=== PATIENT | female | born 1975 | race Caucasian/White ===

== ENCOUNTER 2020-04-06 16:49 | Observation (INO) ==
[~2020-04-06 16:49] MED LIST: RINGER'S SOLUTION,LACTATED 1,000 ML IV PRN
[2020-04-06] MEDS ORDERED: DEXTROSE 5%-NORMAL SALINE 1,000 ML IV PRN (17:01)
--- NOTE | 2020-04-06 17:04 | HP ---
Chief Complaint - Chief Complaint Date of Service: 04/06/20 Time of Service: 17:03 Chief Complaint: vomiting History of Present Illness: She began having nausea and vomiting on 03/31/2020. She reports more belching and a taste in her mouth but not so much heartburn. She denies difficulty swallowing. She denies abdominal discomfort. Typically she will be able to eat but then be nauseated and vomit. She has been moving her bowels and passing gas. Although her stools are a little more loose, they are not watery. She has not traveled. No one else in the family has been sick. She has not had any bagged lettuce products. She was in the [facility] on 627 for IV fluids and IV antiemetics. She was a little better, however the problem persisted and she came in again to the [facility] today for IV fluids. She has had some headaches but they are not associated with any vertigo or focal neurologic symptoms. Her only previous abdominal surgery was for a vaginal hysterectomy. Medical History (Last Reviewed 04/06/20 @ 17:09 by Raya Raymond MD) Hypothyroidism (Chronic) Hypovitaminosis D (Chronic) Onset Date: 04/27/16 Vitamin B12 deficiency (Chronic) Onset Date: 06/18/15 Depression (Chronic) Onset Date: Unknown Hypothyroidism Onset Date: 06/2014 Adenomyosis Onset Date: 12/11/13 History of endometrial biopsy Onset Date: 12/29/13 Negative for hyperplasia/carcinoma. History of hysteroscopy Onset Date: 03/2010 History of hysteroscopy Onset Date: 01/07/14 Hypertension during Onset Date: ~2010 Menorrhagia Onset Date: 05/21/13 Pre-eclampsia Onset Date: ~01/2007 Right hip pain Onset Date: Unknown Uterine polyp Onset Date: Unknown Vulvitis Onset Date: 05/05/16 Abnormal Papanicolaou smear of cervix Onset Date: ~2004 Frequent UTI Onset Date: Unknown HPV (human papilloma virus) infection Onset Date: Unknown Headache Onset Date: Unknown Surgical History: Surgical History (Last Reviewed 04/06/20 @ 17:09 by Raya Raymond MD) History of back surgery Onset Date: ~2002 History of bilateral salpingectomy Onset Date: 07/08/14 History of section Onset Date: 2010 Repeat . History of section Onset Date: 2006 Breech presentation, pre-eclampsia. History of colposcopy Onset Date: ~2004 History of cystoscopy Onset Date: 07/08/14 History of dilation and curettage Onset Date: ~1997 History of dilation and curettage Onset Date: 03/2010 History of loop electrical excision procedure (LEEP) Onset Date: ~1997 History of total vaginal hysterectomy (TVH) Onset Date: 07/08/14 Cervix - mild chronic cervicitis. Endometrium - benign secretory endometrium. Myometrium - nodular adenomyosis. Family History: Family History (Last Reviewed 04/06/20 @ 17:09 by Raya Raymond MD) Father Diabetes Hypertension Pancreas transplanted Kidney transplant recipient Mother , age 59 Lung cancer, Onset Age: 59 Hypertension Hyperlipemia Diabetes Grandfather CHF (congestive heart failure) Prostate cancer Social History: (Last Reviewed 04/06/20 @ 17:09 by Raya Raymond MD) Social History: adopted: No residential: No Marital status: household members: family number of children: 2 current occupational status: employed current occupation: PRINTED CIRCUIT BOARD PREASSEMBLER - [employer] current occupational exposures/hazards: No Highest education level completed: Associate degree: occupat Sexually Active: Yes Service: No Tobacco: Smoking Status: Never smoker Alcohol: alcohol intake: current alcohol intake frequency: holiday/special occasion Substance Use: substance use type: does not use Dietary Habits: caffeine: Yes Type: carbonated beverages, coffee Pets: pets and animals: dog(s) Jahaira/Taoist: special jahaira needs: No Review Of Systems (GEN) - Review of Systems Generalized/Overall Review: Present: Malaise. Absent: Chills, Fever EENTM: Absent: Blurred Vision Respiratory: Present: Other - No sleep apnea. Absent: Cough, Shortness of Breath Cardiac: Present: Edema - Sometimes at the end of the day but resolves overnight. Absent: Chest Pain, Palpitations Abdominal: Present: Nausea, Vomiting, Other - Looser stools, but not watery. No blood or mucus. Absent: Hematemesis, Abdominal Pain Genitourinary: Present: Nocturia - Generally gets up twice or 3 times (chronic). Absent: Burning, Urgency, Frequency Musculoskeletal: Absent: No Symptoms Reported Neurological: Present: Headache - No associated focal neurologic symptoms, Other - She does not sleep well (chronic) Skin: Present: No Symptoms Reported Endocrine: Present: No Symptoms Reported Immunizations: Up to date through employment Allergies/Adverse Reactions: Allergies Allergy/AdvReac Type Severity Reaction Status Date / Time acetaminophen [From Vicodin] AdvReac Severe Nausea Verified 09/23/19 16:00 hydrocodone bitartrate AdvReac Severe Nausea Verified 09/23/19 16:00 [From Vicodin] oxycodone HCl [From Percocet] AdvReac Severe Nausea Verified 09/23/19 16:00 Home Medications: HOME MEDICATIONS cholecalciferol (vitamin D3) 125 mcg (5,000 unit) tablet 125 mcg PO DAILY #0.1 tab 02/22/20 [Last Taken Unknown] bupropion HCl 300 mg 24 hr tablet, extended release 300 mg PO QAM #30 tab 03/05/20 [Last Taken Unknown] alprazolam 1 mg tablet 1 mg PO TID PRN #90 tab 03/27/20 [Last Taken Unknown] escitalopram oxalate 20 mg tablet 20 mg PO DAILY #30 tab 03/27/20 [Last Taken Unknown] levothyroxine 100 mcg capsule 100 mcg PO DAILY #30 cap 03/27/20 [Last Taken Unknown] ondansetron 8 mg disintegrating tablet 8 mg PO Q8H PRN #15 tab 04/03/20 [Last Taken Unknown] Exam - Exam Constitutional: Present: Alert, Oriented x3, Cooperative, Mild distress ENT Exam: Present: normal ENT inspection Neck: Present: full range of motion, normal inspection Breasts: Present: Exam deferred Respiratory: Present: normal breath sounds, no respiratory distress Cardiovascular/Chest: Present: regular rate, rhythm - Distant heart sounds no skipped or extra beats over 1 full minute, no murmur, other - Thready pulse Abdomen: Present: obese, other - She denies any abdominal pain or tenderness /Rectal: Present: Exam deferred Extremity: Present: normal range of motion, normal inspection Skin Exam: Present: normal color - Sun exposure, other Neurologic: Present: 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 Random blood glucose of 154 Ultrasound of the abdomen shows cholelithiasis with no evidence of acute cholecystitis and no tenderness on exam. There was a lot of bowel gas. Assessment/Plan - Assessment/Plan (1) Vomiting Assessment: Her nausea and vomiting have been refractory to outpatient management with medication and IV fluids. Discussed what was involved with EGD and biopsy. The risks and possible compli cations were explained. A pamphlet on EGD and GERD was given to her to review. After an interactive discussion her questions were answered to her apparent satisfaction and she has given informed consent for EGD. The procedure will be performed tonight. A flat and upright abdominal x-ray has been ordered as well. Case was discussed with Dr. Ashford. COVID-19 testing will be done and the case will be handled according to the result. Problem: Acute Qualifiers: Vomiting type: unspecified Vomiting Intractability: intractable Nausea presence: with nausea Qualified Code(s): R11.2 - Nausea with vomiting, unspecified
[2020-04-06] MEDS ORDERED: PROCHLORPERAZINE 25 MG SUPP.RECT RC PRN (17:15)
[2020-04-06] MEDS ORDERED: ACETAMINOPHEN 650 MG SUPP.RECT RC PRN (17:15)
[2020-04-06] MEDS ORDERED: ONDANSETRON HCL/PF 2 MG/ML VIAL IV PRN (17:18)
--- NOTE | 2020-04-06 17:31 | HP ---
Chief Complaint - Chief Complaint Date of Service: 04/06/20 Time of Service: 13:00 Chief Complaint: Intractable nausea and vomiting History of Present Illness: She began having nausea and vomiting on 03/31/2020. She reports more belching and a taste in her mouth but not so much heartburn. She denies difficulty swallowing. She denies abdominal discomfort. Typically she will be able to eat but then be nauseated and vomit. She has been moving her bowels and passing gas. Although her stools are a little more loose, they are not watery. She has not traveled. No one else in the family has been sick. She has not had any bagged lettuce products. She was in the [facility] on 627 for IV fluids and IV antiemetics. She was a little better, however the problem persisted and she came in again to the [facility] today for IV fluids. She has had some headaches but they are not associated with any vertigo or focal neurologic symptoms. Her only previous abdominal surgery was for a vaginal hysterectomy. Medical History (Last Reviewed 04/06/20 @ 17:09 by Raya Raymond MD) Hypothyroidism (Chronic) Hypovitaminosis D (Chronic) Onset Date: 04/27/16 Vitamin B12 deficiency (Chronic) Onset Date: 06/18/15 Depression (Chronic) Onset Date: Unknown Hypothyroidism Onset Date: 06/2014 Adenomyosis Onset Date: 12/11/13 History of endometrial biopsy Onset Date: 12/29/13 Negative for hyperplasia/carcinoma. History of hysteroscopy Onset Date: 03/2010 History of hysteroscopy Onset Date: 01/07/14 Hypertension during Onset Date: ~2010 Menorrhagia Onset Date: 05/21/13 Pre-eclampsia Onset Date: ~01/2007 Right hip pain Onset Date: Unknown Uterine polyp Onset Date: Unknown Vulvitis Onset Date: 05/05/16 Abnormal Papanicolaou smear of cervix Onset Date: ~2004 Frequent UTI Onset Date: Unknown HPV (human papilloma virus) infection Onset Date: Unknown Headache Onset Date: Unknown Surgical History: Surgical History (Last Reviewed 04/06/20 @ 17:09 by Raya Raymond MD) History of back surgery Onset Date: ~2002 History of bilateral salpingectomy Onset Date: 07/08/14 History of section Onset Date: 2010 Repeat . History of section Onset Date: 2007 Breech presentation, pre-eclampsia. History of colposcopy Onset Date: ~2004 History of cystoscopy Onset Date: 07/08/14 History of dilation and curettage Onset Date: ~1997 History of dilation and curettage Onset Date: 03/2010 History of loop electrical excision procedure (LEEP) Onset Date: ~1997 History of total vaginal hysterectomy (TVH) Onset Date: 07/08/14 Cervix - mild chronic cervicitis. Endometrium - benign secretory endometrium. Myometrium - nodular adenomyosis. Family History: Family History (Last Reviewed 04/06/20 @ 17:09 by Raya Raymond MD) Father Diabetes Hypertension Pancreas transplanted Kidney transplant recipient Mother , age 59 Lung cancer, Onset Age: 59 Hypertension Hyperlipemia Diabetes Grandfather CHF (congestive heart failure) Prostate cancer Social History: (Last Reviewed 04/06/20 @ 17:09 by Raya Raymond MD) Social History: adopted: No senior care: No Marital status: household members: family number of children: 2 current occupational status: employed current occupation: TECHNOLOGY EDUCATION INSTRUCTOR - [employer] current occupational exposures/hazards: No Highest education level completed: Associate degree: occupat Sexually Active: Yes Service: No Tobacco: Smoking Status: Never smoker Alcohol: alcohol intake: current alcohol intake frequency: holiday/special occasion Substance Use: substance use type: does not use Dietary Habits: caffeine: Yes Type: carbonated beverages, coffee Pets: pets and animals: dog(s) Jahaira/Lutheran: special jahaira needs: No Review Of Systems (GEN) - Review of Systems Generalized/Overall Review: Present: Weakness, Malaise, Fatigue, Weight loss. Absent: Chills, Fever, Diaphoresis EENTM: Present: No Symptoms Reported Respiratory: Present: No Symptoms Reported Cardiac: Present: No Symptoms Reported Abdominal: Present: Nausea, Vomiting. Absent: Hematemesis, Abdominal Pain, Diarrhea, Melena, Bright blood from rectum Genitourinary: Present: No Symptoms Reported Musculoskeletal: Present: No Symptoms Reported Neurological: Present: Headache, Weakness Skin: Present: No Symptoms Reported Endocrine: Present: No Symptoms Reported Allergies/Adverse Reactions: Allergies Allergy/AdvReac Type Severity Reaction Status Date / Time acetaminophen [From Vicodin] AdvReac Severe Nausea Verified 09/23/19 16:00 hydrocodone bitartrate AdvReac Severe Nausea Verified 09/23/19 16:00 [From Vicodin] oxycodone HCl [From Percocet] AdvReac Severe Nausea Verified 09/23/19 16:00 Home Medications: HOME MEDICATIONS cholecalciferol (vitamin D3) 125 mcg (5,000 unit) tablet 125 mcg PO DAILY #0.1 tab 02/22/20 [Last Taken Unknown] bupropion HCl 300 mg 24 hr tablet, extended release 300 mg PO QAM #30 tab 03/05/20 [Last Taken Unknown] alprazolam 1 mg tablet 1 mg PO TID PRN #90 tab 03/27/20 [Last Taken Unknown] escitalopram oxalate 20 mg tablet 20 mg PO DAILY #30 tab 03/27/20 [Last Taken Unknown] levothyroxine 100 mcg capsule 100 mcg PO DAILY #30 cap 03/27/20 [Last Taken Unknown] ondansetron 8 mg disintegrating tablet 8 mg PO Q8H PRN #15 tab 04/03/20 [Last Taken Unknown] Exam - Exam Constitutional: Present: Alert, Oriented x3, Cooperative, Well developed, Well nourished, Obese ENT Exam: Present: normal ENT inspection, hearing grossly normal, pharynx normal, TMs normal Eye Exam: bilateral eye: normal inspection, PERRL, EOMI Neck: Present: non-tender, full range of motion, supple, normal inspection Back Exam: Present: normal inspection, no CVA tenderness, no vertebral tenderness Breasts: Present: Exam deferred Respiratory: Present: chest non-tender, lungs clear, normal breath sounds, no respiratory distress, no accessory muscle use Cardiovascular/Chest: Present: normal peripheral pulses, tachycardia Peripheral Pulses: carotid (R): 2+, carotid (L): 2+, radial (R): 2+, radial (L): 2+ Abdomen: Present: Normal bowel sounds, soft, nontender, nondistended /Rectal: Present: Exam deferred Extremity: Present: normal range of motion, non-tender, normal inspection, no pedal edema, no calf tenderness, normal capillary refill Skin Exam: Present: normal color, warm/dry, no cyanosis 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 I also gave her Protonix 40 mg IV. She is also had Compazine 25 mg IM. She has had an ultrasound of the abdomen that was nonrevealing as a cause for her intractable nausea and vomiting. 2 view abdomen has been ordered but not yet completed. I have consulted Dr. Morton. He believes she deserves to have an EGD done right away especially while she is n.p.o. spinning supervisor notified me that because she had an outpatient failure over the weekend and still was not feeling great after today's outpatient treatment that the best course would be to admit for observation through the night, continue rehydration and attempt at emesis control, and then get the EGD done. I have placed a consultation in for Dr. Morton. He has already seen her and made recommendations. I will continue with IV fluids tonight. She will have both ondansetron IV and if that is not working then Compazine rectal suppositories are ordered. - Assessment/Plan (1) Intractable nausea and vomiting Problem: Acute (2) Weakness Problem: Acute (3) Dehydration Problem: Acute
[2020-04-06 17:44] LABS: Anion Gap 13.2 mmol/L (6.8-13.8); BUN/Creatinine Ratio 13.2 (9.0-21.6); Blood Urea Nitrogen 12 mg/dL (3-23); Calcium * 8.8 mg/dL (7.9-10.9); Carbon Dioxide 24.9 mmol/L (24-32.6); Chloride 104 mmol/L (97-106); Glucose * 70 mg/dL (70-110); Potassium 3.1 mmol/L (3.4-4.6); Sodium 139 mmol/L (132-142)
[2020-04-06] MEDS ORDERED: NEOSTIGMINE METHYLSULFATE 1 MG/ML VIAL ONE (18:13)
[2020-04-06] MEDS ORDERED: LIDOCAINE HCL 20 ML VIAL ONE (18:13)
[2020-04-06] MEDS ORDERED: ONDANSETRON HCL/PF 2 MG/ML VIAL ONE (18:13)
[2020-04-06] MEDS ORDERED: fentaNYL CITRATE/PF 50 MCG/ML AMPUL ONE (18:13)
[2020-04-06] MEDS ORDERED: GLYCOPYRROLATE 0.2 MG/ML VIAL ONE (18:13)
[2020-04-06] MEDS ORDERED: PROPOFOL VIAL IV ONE (18:13)
[2020-04-06] MEDS ORDERED: SUCCINYLCHOLINE CHLORIDE 20 MG/ML VIAL ONE (18:14)
[2020-04-06] MEDS ORDERED: ROCURONIUM BROMIDE 10 MG/ML VIAL ONE (18:14)
--- NOTE | 2020-04-06 18:42 | ANES ---
Anesthesia Pre Procedure Eval Vitals/Labs: Last Vital Signs Temp 36.3 C 04/06/20 18:04 Pulse 65 04/06/20 18:04 Resp 16 04/06/20 18:04 BP 109/56 04/06/20 18:04 Pulse Ox 96 04/06/20 18:04 HOME MEDICATIONS cholecalciferol (vitamin D3) 125 mcg (5,000 unit) tablet 125 mcg PO DAILY #0.1 tab 02/22/20 [Last Taken Unknown] bupropion HCl 300 mg 24 hr tablet, extended release 300 mg PO QAM #30 tab 03/05/20 [Last Taken Unknown] alprazolam 1 mg tablet 1 mg PO TID PRN #90 tab 03/27/20 [Last Taken Unknown] escitalopram oxalate 20 mg tablet 20 mg PO DAILY #30 tab 03/27/20 [Last Taken Unknown] levothyroxine 100 mcg capsule 100 mcg PO DAILY #30 cap 03/27/20 [Last Taken Unknown] ondansetron 8 mg disintegrating tablet 8 mg PO Q8H PRN #15 tab 04/03/20 [Last Taken Unknown] Allergies/Adverse Reactions: Allergies Allergy/AdvReac Type Severity Reaction Status Date / Time acetaminophen [From Vicodin] AdvReac Severe Nausea Verified 04/06/20 18:01 hydrocodone bitartrate AdvReac Severe Nausea Verified 04/06/20 18:01 [From Vicodin] oxycodone HCl [From Percocet] AdvReac Severe Nausea Verified 04/06/20 18:01 - Planned Procedure Planned Procedure: nausea vomiting failed outpatient treatment Medication List Reviewed:: Yes Allergies Verified: Yes Medical History (Last Reviewed 04/06/20 @ 18:41 by Jung Benavidez CRNA) Hypothyroidism (Chronic) Hypovitaminosis D (Chronic) Onset Date: 04/27/16 Vitamin B12 deficiency (Chronic) Onset Date: 06/18/15 Depression (Chronic) Onset Date: Unknown Hypothyroidism Onset Date: 06/2014 Adenomyosis Onset Date: 12/11/13 History of endometrial biopsy Onset Date: 12/29/13 Negative for hyperplasia/carcinoma. History of hysteroscopy Onset Date: 03/2010 History of hysteroscopy Onset Date: 01/07/14 Hypertension during Onset Date: ~2010 Menorrhagia Onset Date: 05/21/13 Pre-eclampsia Onset Date: ~01/2007 Right hip pain Onset Date: Unknown Uterine polyp Onset Date: Unknown Vulvitis Onset Date: 05/05/16 Abnormal Papanicolaou smear of cervix Onset Date: ~2004 Frequent UTI Onset Date: Unknown HPV (human papilloma virus) infection Onset Date: Unknown Headache Onset Date: Unknown Surgical History (Last Reviewed 04/06/20 @ 18:41 by Jung Benavidez CRNA) History of back surgery Onset Date: ~2002 History of bilateral salpingectomy Onset Date: 07/08/14 History of section Onset Date: 2010 Repeat . History of section Onset Date: 2006 Breech presentation, pre-eclampsia. History of colposcopy Onset Date: ~2004 History of cystoscopy Onset Date: 07/08/14 History of dilation and curettage Onset Date: ~1997 History of dilation and curettage Onset Date: 03/2010 History of loop electrical excision procedure (LEEP) Onset Date: ~1997 History of total vaginal hysterectomy (TVH) Onset Date: 07/08/14 Cervix - mild chronic cervicitis. Endometrium - benign secretory endometrium. Myometrium - nodular adenomyosis. Family History (Last Reviewed 04/06/20 @ 18:41 by Jung Benavidez CRNA) Father Diabetes Hypertension Pancreas transplanted Kidney transplant recipient Mother , age 59 Lung cancer, Onset Age: 59 Hypertension Hyperlipemia Diabetes Grandfather CHF (congestive heart failure) Prostate cancer - Family Anesthesia History Family History:: no untoward family reactions to anesthesia, no familial bleeding tendencies, no family history of clotting disorders, no family history of premature - Airway/Neck/Teeth Within Normal Limits:: Yes Teeth Condition: intact Mallampatti Score: 2 Thyromental (T-M) distance: > 6 cm Mandibulo Hyoid distance: > 3 cm - Respiratory Respiratory Physical: lungs clear Discussed smoking cessation including day of surgery: No Sleep Apnea currently treated: No Sleep Apnea by current assessment: No Discussed Risks/Treatment of SANJAY: No - Cardiovascular Tolerate Activity: Good Heart Sounds: S1 & S2, Regular - Gastrointestinal NPO since: mn - Anesthesia Assessment and Plan ASA Class: PS, II, E Anesthesia Type Plan: General ET
[2020-04-06] MEDS ORDERED: PANTOPRAZOLE SODIUM 40 MG in NORMAL SALINE 100 ML IV PRN (19:08)
--- NOTE | 2020-04-06 19:13 | ANES ---
Post Anesthesia Discharge - Transfer of Care Transfer of Care handoff given to nurse: Yes - Discharge from PACU Discharge from PACU when meets criteria: Yes - Discharge to ASU Discharge to ASU-no complications/pt stable: Yes
--- NOTE | 2020-04-06 19:14 | ANES ---
Post Anesthesia Assessment - Vital Signs Vitals: Last Vital Signs Temp 36.3 C 04/06/20 19:10 Pulse 100 04/06/20 19:10 Resp 18 04/06/20 19:10 BP 120/80 04/06/20 19:10 Pulse Ox 98 04/06/20 19:10 Airway Patency: Normal - Mental Status Level Of Consciousness: Awake - Pain Level Pain Score: 0 - N/V Assessment Nausea/Vomiting Presence: None Dehydration:: No
--- NOTE | 2020-04-06 19:26 | OR ---
Operative Report - Dictated Report Narrative: Operative Report Date of operation: 04/06/2020 Preoperative diagnosis: Vomiting Postoperative diagnosis: Gastropathy (pathology and CLOtest pending) Operation: EGD with biopsies Surgeon: Dr Raymond Anesthesia: General endotracheal Jung Benavidez CRNA Indications for procedure: The patient is a 44-year-old female who has had pernicious nausea and vomiting since 03/31/2020. She has required IV hydration on 2 occasions and has failed outpatient management. Findings: Gastropathy with fundic gland polyp formation (pathology and CLOtest pending) Narrative of procedure: The patient was identified preoperatively, and prior to the administration of anesthetic a multidisciplinary timeout was observed With the patient in the recumbent position, rapid sequence intubation was performed and general anesthetic administered. The flexible fiberoptic gastroscope was advanced into the posterior pharynx alongside the endotracheal tube. The tube was seen to be in good position. The supraglottic larynx appeared normal. The scope was advanced under direct vision into the proximal esophagus which appeared normal. The esophagus appeared freely distensible with normal mucosa. The esophageal mucosa appeared normal down to the gastroesophageal junction which was sharp and noninflamed. The GE junction appeared normally distensible. The scope was advanced into the stomach which was insufflated with air. There was some clear liquid in the proximal stomach which was carefully suctioned prior to continuing exam. There was mild duenas gastric erythema and several small fundic gland polyps. A retroflexed view of the gastric fundus revealed no additional lesions and a normal-appearing gastric side of the GE junction. The scope was redirected toward the pylorus. The pylorus appeared patent with 1 very small erosion. The scope was advanced into the duodenal bulb which appeared normal. The scope was advanced further to the horizontal portion of the duodenum which appeared normal, specifically the villous architecture appeared well preserved and clear bile was present. The scope was slowly withdrawn through the duodenal bulb with confirmation that no active ulcer was present. The scope was withdrawn into the stomach and food service representative biopsies of gastric mucosa obtained for CLOtest and pathology. The biopsy sites were seen to be hemostatic. The insufflated air was removed from the stomach, the scope withdrawn from the patient, and the procedure terminated. The patient tolerated the anesthetic and procedure well without complication and was transferred to the recovery room awake, extubated, and in stable condition. Reviewed and electronically signed
[2020-04-07 06:24] LABS: Hematocrit 37.2 % (37.0-47.0); Hemoglobin 12.6 gm/dL (12.5-16.0); Mean Cell Volume 92.3 fl (78-100); Mean Corpuscular Hemoglobin 31.3 pg (27-31); Mean Corpuscular Hgb Conc 33.9 g/dl (32-36); Mean Platelet Volume 11.1 fl (8-12.5); Neutrophil # 3.7 K/mm3 (1.3-6.0); Neutrophil % 59.3 % (42-75.0); Platelet Count 199 K/mm3 (150-450); Red Blood Count 4.03 M/mm3 (4.2-5.4); Red Cell Distribution Width 12.8 % (11.5-14.0); White Blood Count 6.2 K/mm3 (4.0-10.5)
--- NOTE | 2020-04-07 11:20 | DS ---
(1) Intractable nausea and vomiting Problem: Acute (2) Weakness Problem: Acute (3) Dehydration Problem: Acute Date of Discharge:: 04/07/20 Hospital Course: Noelle Hurt is a 44-year-old female patient who started having nausea with vomiting last Sunday a week ago. She texted me on Sunday saying she was unable to keep food or fluids down. I arranged for her to come to the [facility] for outpatient IV infusion and some IV Zofran. She did feel better for about 12 hours afterwards but then started having nausea and vomiting once again. She called again yesterday stating she thought she needed to come in to be seen. I saw her in the office about 1:00 and found her to be moderately dehydrated. Her abdomen is soft and nontender. Ultrasound of the abdomen is unremarkable and the KUB just shows a nonspecific gas pattern without obstruction. She has developed some headache starting yesterday but it is better today. I kept her n.p.o. on admission and through the night last night giving her IV fluids. She is not had any more nausea or vomiting this morning and was able to eat about half of her breakfast. She has been observed now for 3 hours without any recurrent nausea or vomiting and so she will be discharged home. The cause of her nausea and vomiting is still unknown. It does not appear to be infectious and does not appear to be gallbladder. She had an upper endoscopy by Dr. Morton yesterday and other than some mild erythema near the duodenum there was no other significant findings. He did do a biopsy for H. pylori. That test is still pending. Disposition is improved and her prognosis is good. Procedures Performed: see notes below List Procedures: EGD Plan of Treatment: Brat diet. No dairy for the next week. She is to notify me of any recurrent nausea or vomiting. She will need to be off work until next Sunday. Results and Findings: Lab Pending Results 04/06/20 07:17: Pathology Specimen Spec to path 04/06/20 17:15: SARS-CoV-2 (PCR) Not detected 04/06/20 17:32: Sodium 139, Plasma Sodium 139, Potassium 3.1 L, Chloride 104, Carbon Dioxide 24.9, Anion Gap 13.2, BUN 12, Creatinine 0.91, Est GFR (Non-Af Amer) 71, BUN/Creatinine Ratio 13.2, Random Glucose 70 D, Calcium 8.8 04/07/20 06:18: WBC 6.2, RBC 4.03 L, Hgb 12.6, Hct 37.2, MCV 92.3, MCH 31.3 H, MCHC 33.9, RDW 12.8, Plt Count 199, MPV 11.1, Immature Gran % (Auto) 0.20, Immature Gran # (Auto) 0.01, Neutrophils % 59.3, Lymphocytes % 31.9, Monocytes % 7.0, Eosinophils % 1.3, Basophils % 0.3, Nucleated RBC % 0.0, Neutrophils # 3.7, Lymphocytes # 1.97, Monocytes # 0.4, Eosinophils # 0.1, Absolute Basophils 0.0 Discharge Location: Home Disposition: Home self-care Condition: Good Discharge Activity: Activity as tolerated Discharge Diet: Clear Liquids, Other - BRAT diet. No dairy for 1 week. Referrals: Mac Oates, [Primary Care Provider] - Additional Patient Instructions (free text): Hold all usual p.o. meds until Sunday except for the levothyroxine which can be resumed tomorrow. Complete Home Medications List: Complete Home Medication List: cholecalciferol (vitamin D3) 125 mcg (5,000 unit) tablet 125 mcg PO DAILY #0.1 tab 02/22/20 bupropion HCl 300 mg 24 hr tablet, extended release 300 mg PO QAM #30 tab 03/05/20 alprazolam 1 mg tablet 1 mg PO TID PRN #90 tab 03/27/20 escitalopram oxalate 20 mg tablet 20 mg PO DAILY #30 tab 03/27/20 levothyroxine 100 mcg capsule 100 mcg PO DAILY #30 cap 03/27/20 ondansetron 8 mg disintegrating tablet 8 mg PO Q8H PRN #15 tab 04/03/20 Acetaminophen [Tylenol Suppository] 650 mg RC Q6H PRN supp.rect 04/07/20 Prochlorperazine [Compazine] 25 mg RC BID PRN #10 supp.rect 04/07/20
[2020-04-07 12:53] VITALS: BP 117/73
== END 2020-04-07 12:45 | disposition home or self-care (01) ==
LOC: MS
PROVIDERS: ADMIT Family Medicine; ATTEND Family Medicine
CPT/HCPCS: 36415; 74019; 74020; 80048; 85025; 87081; 88305; 88888; 96361; 96374; C9803; G0378; G0379; J2405